=== PATIENT | female | born 1960 | race American Indian/Alaskan Native ===

== ENCOUNTER 2018-07-19 19:59 | Emergency (ER) | payer MEDICAID ==
[2018-07-19] MEDS ORDERED: Bupivacaine 0.5% 30 ML SDV INJECT ONE (20:36)
[2018-07-19] MEDS ORDERED: Lidocaine 1% 30 ML SDV INJECT ONE (20:38)
[2018-07-19] MEDS ORDERED: Amoxicillin 500 MG Cap PO ONE (21:11)
--- NOTE | 2018-07-19 21:15 | EDM.PDOC ---
ED HPI GENERAL MEDICAL PROBLEM - General Chief Complaint: ENT Problem Stated Complaint: ABSCESS TOOTH Time Seen by Provider: 07/19/18 20:33 Source of Information: Reports: Patient, Family, RN, RN Notes Reviewed History Limitations: Reports: No Limitations - History of Present Illness INITIAL COMMENTS - FREE TEXT/NARRATIVE: Pt to ER with c/o dental abscess to the right lower jaw. She states she needs to have the tooth pulled but needs to get the infection under control Patient states this began this weekend and has progressively gotten worse. Admits to fever, chills, N/V/D. Admits to using Tylenol and ibuprofen for pain. 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 Right Lower Jaw Pain Score (Numeric/FACES): 9 - Related Data Allergies Allergy/AdvReac Type Severity Reaction Status Date / Time cat dander Allergy Difficulty Verified 07/19/18 20:19 Breathing Home Meds: Home Meds Albuterol [Proventil HFA] 2 inh INH Q4H PRN 07/19/18 [History] Lisinopril [Prinivil] 20 mg PO DAILY 07/19/18 [History] Loratadine [Claritin] 10 mg PO DAILY 07/19/18 [History] Naproxen 2 tab PO Q12H PRN 07/19/18 [History] Past Medical History Cardiovascular History: Reports: Hypertension Respiratory History: Reports: Asthma 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 ED EXAM, ENT - Physical Exam Exam: See Below Exam Limited By: No Limitations General Appearance: Alert, WD/WN, Moderate Distress Eye Exam: Bilateral Eye: EOMI, Normal Inspection Ears: Normal External Exam, Hearing Grossly Normal Nose: Normal Inspection Mouth/Throat: Dental Abcess (right lower jaw, surrounding first molar) Head: Atraumatic, Normocephalic Neck: Normal Inspection, Supple, Non-Tender, Full Range of Motion Respiratory/Chest: No Respiratory Distress, Lungs Clear, Normal Breath Sounds, No Accessory Muscle Use, Chest Non-Tender Cardiovascular: Normal Peripheral Pulses, Regular Rate, Rhythm, No Edema, No Gallop, No JVD, No Murmur, No Rub GI/Abdominal: Normal Bowel Sounds, Soft, Non-Tender (Female) Exam: Deferred Rectal (Female) Exam: Deferred Back: Normal Inspection, Full Range of Motion Extremities: Normal Inspection, Normal Range of Motion, Non-Tender, No Pedal Edema, Normal Capillary Refill Neurological: Alert, Oriented, CN II-XII Intact, Normal Cognition, Normal Gait, Normal Reflexes, No Motor/Sensory Deficits Psychiatric: Anxious, Tearful Skin: Warm, Dry, Intact, Normal Color, No Rash Lymphatic: No Adenopathy ED ENT PROCEDURES - Additional/Other Procedure(s) Other (Free Text) Procedure(s): With the assistance of Jason Hoover NP, the right alveolar nerve was blocked with bupivicaine 0.5%and lidocaine 1%. An 11 blade scalpel was used to incise the abscess. Massage was used to break up inoculations, suction used. Minimal purulent drainage from the abscess was noted. No complications. Course - Vital Signs Last Recorded V/S: Last Vital Signs Temp 99.1 F 07/19/18 20:15 Pulse 96 07/19/18 20:15 Resp 18 07/19/18 20:15 BP 130/74 07/19/18 20:15 Pulse Ox 95 07/19/18 20:15 - Orders/Labs/Meds Meds: Medications Discontinued Medications Generic Name Dose Route Start Last Admin Trade Name Christopher PRN Reason Stop Dose Admin Amoxicillin 500 mg 07/19/18 21:11 07/19/18 21:22 Amoxil PO 07/19/18 21:12 500 mg ONETIME ONE Administration Bupivacaine HCl 30 ml 07/19/18 20:36 07/19/18 20:46 Marcaine 0.5% INJECT 07/19/18 20:37 30 ml ONETIME ONE Administration Lidocaine HCl 30 ml 07/19/18 20:38 07/19/18 20:46 Xylocaine-Mpf 1% INJECT 07/19/18 20:39 30 ml ONETIME ONE Administration Departure - Departure Time of Disposition: 21:13 Disposition: Home, Self-Care 01 Condition: Fair Clinical Impression: Dental abscess - Discharge Information *PRESCRIPTION DRUG MONITORING PROGRAM REVIEWED*: No *COPY OF PRESCRIPTION DRUG MONITORING REPORT IN PATIENT ELIJAH: No Instructions: Dental Abscess, [id number] Referrals: PCP,None [Primary Care Provider] - Forms: ED Department Discharge Additional Instructions: Rinse mouth with mouthwash three times daily May use warm packs to the face as tolerated Continue using Tylenol and/or Ibuprofen as directed for pain Drink plenty of water Follow up with dentistry
== END 2018-07-19 21:27 | disposition home or self-care (01) ==
LOC: DL.ED 19:59
DX: K04.7 Periapical abscess without sinus (principal); I10 Essential (primary) hypertension; Z79.899 Other long term (current) drug therapy
CPT/HCPCS: 41800; 99282; A9270-GY; J2001; J3490

== ENCOUNTER 2024-12-05 17:43 | Inpatient (IN) | payer OTHER ==
[2024-12-05] MEDS: methylPREDNISolone Sodium Succinate 40 MG/1 ML SDV IVPUSH ONE (18:18)
[2024-12-05 18:20] LABS: BASOPHILS PERCENT AUTO 0.2 % (0.0-1.0); EOSINOPHILS PERCENT AUTO 2.2 % (1.0-3.0); LYMPHOCYTES PERCENT AUTO 4.5 % (20.5-50.1); MONOCYTES PERCENT AUTO 3.9 % (2-8); NEUTROPHILS PERCENT AUTO 89.2 % (42.2-75.2); PLATELET COUNT,PLT 420 10^3/uL (150-450); RED BLOOD CELL COUNT 4.70 10^6/uL (4.2-5.4); WHITE BLOOD CELL COUNT,WBC 13.3 10^3/uL (5.0-10.0)
[2024-12-05] MEDS: Levofloxacin/Dextrose 5%-Water 500 MG in Premix Bag 1 BAG IV ONE (18:22)
[2024-12-05] MEDS: Magnesium Sulfate 2 GM/50 mL 2 GM in Premix Bag 1 BAG IV ONE (18:22)
[2024-12-05] MEDS: Albuterol 0.083% 2.5 MG/3 ML Neb Soln NEB ONE (18:29)
[2024-12-05 18:36] LABS: A/G RATIO 0.9; ALANINE AMINOTRANSFERASE,ALT 22.0 U/L (14-59); BILIRUBIN TOTAL 0.2 mg/dL (0.2-1.0); BLOOD UREA NITROGEN,BUN 15.0 mg/dL (7-18); CARBON DIOXIDE,CO2 30.0 mmol/L (21-32); CREATININE 0.48 mg/dL (0.55-1.02); EST CRCL DRUG DOSING (CG) 106.54 mL/min; GLUCOSE RANDOM 117.0 mg/dL (70-99); PROTEIN TOTAL,TP 7.3 g/dL (6.4-8.2)
[2024-12-05 18:39] LABS: LACTIC ACID 1.9 mmol/L (0.4-2.0)
[2024-12-05 18:45] LABS: CHLORIDE,CL 107.0 mmol/L (98-107); SODIUM,NA 143.0 mmol/L (136-145)
[2024-12-05 18:55] LABS: ASPARTATE AMNIOTRANSFERASE,AST 18.0 U/L (15-37); ESTIMATED GFR 106.0 mL/min (>=60); POTASSIUM,K 3.8 mmol/L (3.5-5.1)
[2024-12-05] MEDS ORDERED: Magnesium Hydroxide 400 MG/5 ML Susp 30 ML Cup PO PRN (20:46)
[2024-12-05] MEDS ORDERED: Metoprolol Tartrate 5 MG/5 ML SDV IVPUSH PRN (20:46)
[2024-12-05] MEDS ORDERED: Ondansetron 4 MG/2 ML SDV IVPUSH PRN (20:46)
[2024-12-05] MEDS ORDERED: Acetaminophen/oxyCODONE 325-5 MG Tab PO PRN (20:46)
[2024-12-05] MEDS ORDERED: hydrALAZINE 20 MG/ML SDV IVPUSH PRN (20:46)
[2024-12-05] MEDS ORDERED: guaiFENesin/Dextromethorphan 100-10 MG/5 ML Soln 5 ML Cup PO PRN (20:55)
[2024-12-05] MEDS ORDERED: 50% Dextrose in Water 50 ML Syringe IVPUSH PRN (20:56)
[2024-12-05] MEDS: AMINOPHYLLINE IV ONE (22:12)
[2024-12-05] MEDS: SODIUM CHLORIDE 0.9% IV ONE (22:12)
[2024-12-05] MEDS: diphenhydrAMINE 50 MG/ML SDV IVPUSH ONE ×2 (22:15→22:49)
[2024-12-05] MEDS: Formoterol/Mometasone 200-5 MCG 8.8 GM Inhaler INH SCH (22:29)
[2024-12-05] MEDS: methylPREDNISolone Sodium Succinate 125 MG/2 ML SDV IVPUSH SCH (23:35)
[2024-12-05 23:58] LABS: APPEARANCE,URINE CLEAR (CLEAR); GLUCOSE,URINE 500 (NEGATIVE); OCCULT BLOOD,URINE NEGATIVE (NEGATIVE)
[2024-12-06 06:19] LABS: BASOPHILS PERCENT AUTO 0.0 % (0.0-1.0); EOSINOPHILS PERCENT AUTO 0.0 % (1.0-3.0); LYMPHOCYTES PERCENT AUTO 4.4 % (20.5-50.1); MONOCYTES PERCENT AUTO 0.4 % (2-8); NEUTROPHILS PERCENT AUTO 95.2 % (42.2-75.2); PLATELET COUNT,PLT 446 10^3/uL (150-450); RED BLOOD CELL COUNT 4.62 10^6/uL (4.2-5.4); WHITE BLOOD CELL COUNT,WBC 11.0 10^3/uL (5.0-10.0)
[2024-12-06 06:43] LABS: ALANINE AMINOTRANSFERASE,ALT 20.0 U/L (14-59); ASPARTATE AMNIOTRANSFERASE,AST 9.0 U/L (15-37); BILIRUBIN TOTAL 0.1 mg/dL (0.2-1.0); BLOOD UREA NITROGEN,BUN 11.0 mg/dL (7-18); CARBON DIOXIDE,CO2 24.0 mmol/L (21-32); CHLORIDE,CL 109.0 mmol/L (98-107); CREATININE 0.55 mg/dL (0.55-1.02); EST CRCL DRUG DOSING (CG) 89.23 mL/min; GLUCOSE RANDOM 161.0 mg/dL (70-99); POTASSIUM,K 3.7 mmol/L (3.5-5.1); PROTEIN TOTAL,TP 7.2 g/dL (6.4-8.2); SODIUM,NA 143.0 mmol/L (136-145)
[2024-12-06 06:49] LABS: A/G RATIO 0.8; ESTIMATED GFR 102.0 mL/min (>=60)
[2024-12-06] MEDS: Tiotropium Bromide 4 GM Inhalation Spray (2.5mcg/1 dose; 10 doses) INH SCH (07:01)
[2024-12-06] MEDS ORDERED: Sodium Chloride 0.9% Inhalation Soln 3 ML Neb INH PRN (11:39)
[2024-12-06] MEDS: Sodium Chloride 0.9% 10 ML Syringe FLUSH PRN (17:17)
[2024-12-07 06:16] LABS: BASOPHILS PERCENT AUTO 0.0 % (0.0-1.0); EOSINOPHILS PERCENT AUTO 0.0 % (1.0-3.0); LYMPHOCYTES PERCENT AUTO 3.5 % (20.5-50.1); MONOCYTES PERCENT AUTO 1.7 % (2-8); NEUTROPHILS PERCENT AUTO 94.8 % (42.2-75.2); PLATELET COUNT,PLT 454 10^3/uL (150-450); RED BLOOD CELL COUNT 4.46 10^6/uL (4.2-5.4); WHITE BLOOD CELL COUNT,WBC 22.9 10^3/uL (5.0-10.0)
[2024-12-07 06:39] LABS: ALANINE AMINOTRANSFERASE,ALT 19.0 U/L (14-59); ASPARTATE AMNIOTRANSFERASE,AST 10.0 U/L (15-37); BILIRUBIN TOTAL 0.1 mg/dL (0.2-1.0); BLOOD UREA NITROGEN,BUN 16.0 mg/dL (7-18); CARBON DIOXIDE,CO2 27.0 mmol/L (21-32); CHLORIDE,CL 109.0 mmol/L (98-107); CREATININE 0.5 mg/dL (0.55-1.02); EST CRCL DRUG DOSING (CG) 98.16 mL/min; GLUCOSE RANDOM 145.0 mg/dL (70-99); POTASSIUM,K 4.0 mmol/L (3.5-5.1); PROTEIN TOTAL,TP 6.9 g/dL (6.4-8.2); SODIUM,NA 144.0 mmol/L (136-145)
[2024-12-07 06:45] LABS: A/G RATIO 0.82; ESTIMATED GFR 105.0 mL/min (>=60)
[2024-12-07] MEDS: REMOVE NICOTINE TRDERM SCH (08:19)
[2024-12-07] MEDS: Acetaminophen/Butalbital/Caffeine 325-50-40 MG Tab PO ONE (09:21)
== END 2024-12-07 10:38 | disposition home or self-care (01) | DRG 189 ==
LOC: DL.ED 17:43 → DL.MS 19:14
PROVIDERS: ADMIT Internal Medicine; ATTEND Internal Medicine
DX: J96.01 Acute respiratory failure with hypoxia (principal); J44.1 Chronic obstructive pulmonary disease with (acute) exacerbation; I10 Essential (primary) hypertension; R73.9 Hyperglycemia, unspecified; D72.829 Elevated white blood cell count, unspecified; J45.909 Unspecified asthma, uncomplicated; M19.90 Unspecified osteoarthritis, unspecified site; Z72.0 Tobacco use; Z79.899 Other long term (current) drug therapy
CPT/HCPCS: 36415; 71045; 80053; 81003; 82947; 83605; 83735; 85025; 86140; 87040; 87070; 87205; 94010; 94060; 94640; 94664; 96365; 96375; 99284; 99285-25; A9270-GY; J0280; J0456; J0696; J1200; J1308; J1815-GY; J1956; J2270; J2919; J3475; J7040; J7050